=== PATIENT | female | born 1970 | race Caucasian/White ===

== ENCOUNTER 2019-08-25 18:15 | Inpatient (IN) | payer MEDICAID ==
[~2019-08-25] VITALS: Ht 160 cm; Wt 47.7 kg
[~2019-08-25 18:15] MED LIST: FENT1PAT7 TD; HYDR-4383 PO; LAMO100T PO; LORA1TAB PO; PANT-47 PO; SUCR1ORA2 PO; TEMA15CA PO
[2019-08-25] MEDS ORDERED: normal saline 1000ML IV soln IV ONE (18:25)
[2019-08-25] MEDS ORDERED: morphine 4 MG/ML inj SYRINge IV ONE (18:25)
[2019-08-25] MEDS ORDERED: vancomycin/NS 1 GM ADD-VANTAGE 250 ML IV ONE (18:25)
[2019-08-25] MEDS ORDERED: clindamycin 600mg/D5W 50ml 50 ML IV ONE (18:25)
[2019-08-25] MEDS ORDERED: iohexol 350MG/ML 100ml bottle IV ONE (18:37)
[2019-08-25] MEDS ORDERED: iohexol 300mg/ml 100ml inj. ONE (18:39)
[2019-08-25 19:28] LABS: BASOPHILS % (AUTO) 0.3 % (0-1); EOSINOPHILS # (AUTO) 0.2 X10'3 (0-0.9); EOSINOPHILS % (AUTO) 1.5 % (0-6); HEMATOCRIT 27.6 % (35.0-45.0); HEMOGLOBIN 8.9 g/dl (12.0-16.0); LYMPHOCYTES # (AUTO) 1.7 X10'3 (1.1-4.8); LYMPHOCYTES % (AUTO) 12.8 % (21-51); MEAN CORPUSCULAR HEMOGLOBIN 24.4 PG (27.0-31.0); MEAN CORPUSCULAR HGB CONC 32.1 g/dL (33.0-36.5); MEAN PLATELET VOLUME 6.7 FL (7.4-10.4); MONOCYTES # (AUTO) 1.1 X10'3 (0-0.9); MONOCYTES % (AUTO) 8.2 % (2-12); NEUTROPHILS # (AUTO) 10.4 X10'3 (1.8-7.7); NEUTROPHILS % (AUTO) 77.2 % (42-75); PLATELET COUNT 389 X10'3 (140-440); RED BLOOD COUNT 3.64 X10'6 (4.20-5.60); RED CELL DISTRIBUTION WIDTH 18.4 % (11.5-14.5); WHITE BLOOD COUNT 13.5 X10'3 (4.5-11.0)
[2019-08-25 19:46] LABS: ALANINE AMINOTRANSFERASE 103 U/L (12-78); ALBUMIN 2.7 G/DL (3.4-5.0); ALBUMIN/GLOBULIN RATIO 0.7 (1.1-1.5); ALKALINE PHOSPHATASE 122 IU/L (46-116); ANION GAP 10 (8-16); ASPARTATE AMINO TRANSFERASE 77 U/L (10-37); BILIRUBIN,TOTAL 0.3 MG/DL (0.1-1.0); BLOOD UREA NITROGEN 7 MG/DL (7-18); CALCIUM 7.8 MG/DL (8.5-10.1); CHLORIDE 104 MMOL/L (99-107); POTASSIUM 3.2 MMOL/L (3.5-5.1); SODIUM 139 MMOL/L (135-145); TOTAL CARBON DIOXIDE 25.4 MMOL/L (24-32); TOTAL PROTEIN 6.6 G/DL (6.4-8.2); eGFR > 90 ML/MIN
[2019-08-25 19:48] LABS: GLUCOSE 93 MG/DL (70-104)
[2019-08-25] MEDS ORDERED: acetaminophen 325mg tablet PO PRN ×2 (21:05)
[2019-08-25] MEDS ORDERED: ondansetron/PF 4mg/2ml inj IV PRN (21:05)
[2019-08-25] MEDS ORDERED: potassium Cl 20 mEq SR tablet PO PRN (21:05)
[2019-08-25] MEDS ORDERED: magnesium Cl slow-release 64mg tablet PO PRN (21:05)
[2019-08-25] MEDS ORDERED: normal saline 1000ml 1,000 ML IV ONE (21:05)
[2019-08-25] MEDS ORDERED: magnesium 4gm in 100ml NS 100 ML IV PRN (21:05)
[2019-08-25] MEDS ORDERED: morphine 2 MG/ML inj. syringe IV PRN (21:05)
[2019-08-25] MEDS ORDERED: potassium CL 10mEq/100ml bag 100 ML IV PRN ×2 (21:05)
[2019-08-25] MEDS ORDERED: magnesium 2GM in 50ml NS 50 ML IV PRN (21:05)
[2019-08-25] MEDS ORDERED: magnesium hydroxide 30ml (MOM) UD suspension PO PRN (21:05)
[2019-08-25] MEDS ORDERED: mag hydrox/Alum hydrox/simeth 30ml oral suspension PO PRN (21:05)
[2019-08-25 21:09] LABS: CLARITY,URINE SLIGHTLY CLOUDY (Clear); COLOR,URINE YELLOW (Yellow); GLUCOSE, URINE NEGATIVE (Neg); KETONES,URINE NEGATIVE (Neg); LEUKOCYTE ESTERASE ,URINE LARGE (Neg); NITRITES, URINE NEGATIVE (Neg); OCCULT BLOOD,URINE TRACE-INTACT (Neg); PROTEIN,URINE NEGATIVE (Neg); UROBILINOGEN,URINE 0.2 E.U/dL (0.2-1.0)
[2019-08-25 21:10] LABS: URINE HCG NEGATIVE (NEG)
[2019-08-25 21:23] LABS: UA COLLECTION TYPE CLN CATCH MIDSTREAM
[2019-08-25 21:26] LABS: WBC,URINE 20-30 /HPF (0-4)
[2019-08-25 21:31] LABS: BACTERIA,URINE FEW /HPF (Neg); MUCUS STRANDS FEW /LPF (Neg); RBC,URINE 0-2 /HPF (0-2); SQUAMOUS EPITHELIAL CELL,UR MANY /LPF (FEW); TRANSITIONAL EPI CELLS,URINE FEW /HPF; WBC CLUMPS,URINE FEW /HPF (NEGATIVE)
[2019-08-25 21:32] LABS: TRICHOMONAS,URINE FEW /HPF (NEGATIVE)
--- NOTE | 2019-08-25 22:15 | NUR ---
Received report from Rima GARBER in the ER. Pt arrived on the unit via gurney. VSS, on R/A, no fluids running. Pt was able to walk from the gurney to the bed. No signs of distress, will continue to monitor.
[2019-08-25 22:30] VITALS: BP 142/96
[2019-08-25] MEDS: morphine 2 MG/ML inj. syringe IV PRN (23:22)
[2019-08-26 01:11] LABS: CLARITY,URINE CLEAR (Clear); COLOR,URINE YELLOW (Yellow); GLUCOSE, URINE NEGATIVE (Neg); KETONES,URINE TRACE mg/dl (Neg); LEUKOCYTE ESTERASE ,URINE SMALL (Neg); NITRITES, URINE NEGATIVE (Neg); OCCULT BLOOD,URINE NEGATIVE (Neg); PROTEIN,URINE NEGATIVE (Neg); UROBILINOGEN,URINE 0.2 E.U/dL (0.2-1.0)
[2019-08-26 01:17] LABS: UA COLLECTION TYPE OTHER
[2019-08-26 01:19] LABS: BACTERIA,URINE FEW /HPF (Neg); RBC,URINE NONE SEEN /HPF (0-2); SQUAMOUS EPITHELIAL CELL,UR MODERATE /LPF (FEW)
[2019-08-26] MEDS: HYDROcodone/acetaminophen 5mg/325mg tablet PO PRN ×2 (02:11→16:12)
[2019-08-26] MEDS: clindamycin 300mg/D5W 50mL 50 ML IV SCH ×4 (02:13→20:28)
[2019-08-26] MEDS: morphine 2 MG/ML inj. syringe IV PRN ×3 (05:35→20:34)
--- NOTE | 2019-08-26 06:37 | NUR ---
Problems reprioritized. Patient report given, questions answered & plan of care reviewed with Melanie GARBER.
--- NOTE | 2019-08-26 06:46 | NUR ---
Patient in room [facility]. I have received report from Bina GARBER and had the opportunity to ask questions and assume patient care.
[2019-08-26 08:00] VITALS: BP 131/77
[2019-08-26] MEDS: K and/or MAG REPLACEMENT MC SCH ×2 (08:00→20:00)
[2019-08-26] MEDS ORDERED: NO HOME MEDS (08:05)
[2019-08-26] MEDS: lactobacillus rhamnosus 10,000 MMU CELLS/CAPSULE PO SCH ×2 (08:33→20:28)
[2019-08-26] MEDS ORDERED: normal saline 500ml IV soln 500 ML IV SCH (08:40)
[2019-08-26 09:31] LABS: BASOPHILS % (AUTO) 0.1 % (0-1); EOSINOPHILS % (AUTO) 0.1 % (0-6); HEMATOCRIT 28.1 % (35.0-45.0); HEMOGLOBIN 9.2 g/dl (12.0-16.0); LYMPHOCYTES # (AUTO) 1.1 X10'3 (1.1-4.8); LYMPHOCYTES % (AUTO) 7.2 % (21-51); MEAN CORPUSCULAR HEMOGLOBIN 24.8 PG (27.0-31.0); MEAN CORPUSCULAR HGB CONC 32.9 g/dL (33.0-36.5); MEAN CORPUSCULAR VOLUME 75.6 FL (78-98); MEAN PLATELET VOLUME 6.6 FL (7.4-10.4); MONOCYTES # (AUTO) 0.7 X10'3 (0-0.9); MONOCYTES % (AUTO) 4.5 % (2-12); NEUTROPHILS # (AUTO) 13.4 X10'3 (1.8-7.7); NEUTROPHILS % (AUTO) 88.1 % (42-75); PLATELET COUNT 406 X10'3 (140-440); RED BLOOD COUNT 3.72 X10'6 (4.20-5.60); RED CELL DISTRIBUTION WIDTH 18.7 % (11.5-14.5); WHITE BLOOD COUNT 15.2 X10'3 (4.5-11.0)
[2019-08-26 09:43] LABS: ALBUMIN 2.4 G/DL (3.4-5.0); ANION GAP 11 (8-16); BLOOD UREA NITROGEN 5 MG/DL (7-18); CHLORIDE 105 MMOL/L (99-107); MAGNESIUM 1.8 MG/DL (1.5-2.4); POTASSIUM 3.3 MMOL/L (3.5-5.1); SODIUM 139 MMOL/L (135-145); TOTAL CARBON DIOXIDE 23.2 MMOL/L (24-32); eGFR > 90 ML/MIN
[2019-08-26 09:45] LABS: GLUCOSE 102 MG/DL (70-104)
[2019-08-26] MEDS: VANCOMYCIN 750MG IV in NS 250 ML IV SCH ×2 (09:47→22:04)
[2019-08-26 10:38] LABS: ANISOCYTOSIS 2+; HYPOCHROMASIA 1+; MICROCYTOSIS 1+; PLATELET ESTIMATE NORMAL
[2019-08-26 11:00] VITALS: BP 128/81
[2019-08-26] MEDS: potassium Cl 20 mEq SR tablet PO PRN ×3 (11:25→20:27)
--- NOTE | 2019-08-26 16:30 | NUR ---
Dr Mohamud was not sure who was going to see the pt from Ortho. Dr Mohamud then called Dr Lindquist for consult. After Dr Rowland came to see the pt, Dr Lindquist will schedule pt for surgery on 08/27/19 AT about 0730. Pt will be NPO at Midnight.
--- NOTE | 2019-08-26 18:10 | NUR ---
Problems reprioritized. Patient report given, questions answered & plan of care reviewed with Bina GARBER.
--- NOTE | 2019-08-26 18:30 | NUR ---
Problems reprioritized. Patient report given, questions answered & plan of care reviewed with Roz key.
--- NOTE | 2019-08-26 19:28 | NUR ---
Patient in room [facility]. I have received report from Melanie GARBER and had the opportunity to ask questions and assume patient care.
[2019-08-26 20:00] VITALS: BP 132/82
[2019-08-27] VITALS (18 sets, daily range): BP systolic 110–145; BP diastolic 60–89
[2019-08-27] MEDS: clindamycin 300mg/D5W 50mL 50 ML IV SCH ×4 (02:23→19:35)
--- NOTE | 2019-08-27 03:59 | NUR ---
Pt has 0730 vanco level ordered, however pt scheduled to be in OR at 0730. Per pharmacy vanco level will need to be drawn before 2000 dose of Vanco.
[2019-08-27 04:57] LABS: BASOPHILS % (AUTO) 0.1 % (0-1); EOSINOPHILS % (AUTO) 0.2 % (0-6); HEMATOCRIT 28.4 % (35.0-45.0); HEMOGLOBIN 9.4 g/dl (12.0-16.0); LYMPHOCYTES # (AUTO) 1.5 X10'3 (1.1-4.8); LYMPHOCYTES % (AUTO) 11.9 % (21-51); MEAN CORPUSCULAR HEMOGLOBIN 24.7 PG (27.0-31.0); MEAN PLATELET VOLUME 6.7 FL (7.4-10.4); MONOCYTES # (AUTO) 0.7 X10'3 (0-0.9); MONOCYTES % (AUTO) 5.6 % (2-12); NEUTROPHILS # (AUTO) 10.2 X10'3 (1.8-7.7); NEUTROPHILS % (AUTO) 82.2 % (42-75); PLATELET COUNT 457 X10'3 (140-440); RED BLOOD COUNT 3.79 X10'6 (4.20-5.60); RED CELL DISTRIBUTION WIDTH 18.6 % (11.5-14.5); WHITE BLOOD COUNT 12.4 X10'3 (4.5-11.0)
[2019-08-27 04:59] LABS: ALANINE AMINOTRANSFERASE 65 U/L (12-78); ALBUMIN 2.4 G/DL (3.4-5.0); ALBUMIN/GLOBULIN RATIO 0.6 (1.1-1.5); ALKALINE PHOSPHATASE 119 IU/L (46-116); ANION GAP 8 (8-16); ASPARTATE AMINO TRANSFERASE 41 U/L (10-37); BILIRUBIN,TOTAL 0.4 MG/DL (0.1-1.0); BLOOD UREA NITROGEN 8 MG/DL (7-18); BUN/CREATININE RATIO 16.7 (6.6-38.0); CALCIUM 8.2 MG/DL (8.5-10.1); CHLORIDE 105 MMOL/L (99-107); CREATININE 0.48 MG/DL (0.40-0.90); PARTIAL THROMBOPLASTIN TIME 27 SECONDS (22-32); POTASSIUM 3.6 MMOL/L (3.5-5.1); SODIUM 137 MMOL/L (135-145); TOTAL CARBON DIOXIDE 24.3 MMOL/L (24-32); TOTAL PROTEIN 6.4 G/DL (6.4-8.2); eGFR > 90 ML/MIN
[2019-08-27 05:08] LABS: GLUCOSE 104 MG/DL (70-104)
[2019-08-27 06:22] LABS: PLATELET ESTIMATE INCREASED
[2019-08-27 06:23] LABS: ANISOCYTOSIS 2+; MICROCYTOSIS 1+
[2019-08-27 06:24] LABS: HYPOCHROMASIA 1+; POIKILOCYTOSIS FEW
--- NOTE | 2019-08-27 06:31 | NUR ---
Problems reprioritized. Patient report given, questions answered & plan of care reviewed with Sarah GARBER. Pt sleeping on his back, no signs of distress.
[2019-08-27] MEDS ORDERED: BUPIVAcaine/PF 2.5 mg/ml (0.25%) 30ml vial ONE (06:53)
[2019-08-27] MEDS: lactobacillus rhamnosus 10,000 MMU CELLS/CAPSULE PO SCH ×2 (06:58→19:36)
[2019-08-27] MEDS ORDERED: ringers solution, lacted 1,000 ML IV SCH (07:06)
[2019-08-27] MEDS ORDERED: morphine 4 MG/ML inj SYRINge IV PRN ×2 (07:10)
[2019-08-27] MEDS ORDERED: meperidine/PF 25mg/ml syringe IV PRN ×2 (07:10)
[2019-08-27] MEDS ORDERED: ondansetron/PF 4mg/2ml inj IV PRN (07:10)
[2019-08-27] MEDS ORDERED: proCHLORperazine 10 MG/2 ml inj IV PRN (07:10)
[2019-08-27] MEDS ORDERED: sevoflurane 250ml liquid IH ONE (07:11)
[2019-08-27] MEDS ORDERED: propofol inj 20 ML IV ONE (07:14)
[2019-08-27] MEDS ORDERED: fentaNYL/PF 50MCG/1 ML 2ML syringe ONE ×2 (07:14→07:26)
[2019-08-27] MEDS ORDERED: VANCOMYCIN LEVEL IV ONE (07:30)
--- NOTE | 2019-08-27 07:55 | NUR ---
Received from OR via BED, accompanied by Anesthesiologist DR SLADE and report given by Anesthesiolgist. PATIENT A&OX4, DENIES PAIN, V/S WNL, NEUROVASCULAR CHECKS INTACT, 20G PIV RUE, SCD ON, DRESSING TO LEFT WRIST WV AT 125 CONTINOUS SUCTION WITH NO LEAKS DETECTED CDI ELEVATED .
[2019-08-27] MEDS: VANCOMYCIN 750MG IV in NS 250 ML IV SCH ×2 (08:00→20:27)
[2019-08-27] MEDS: K and/or MAG REPLACEMENT MC SCH ×2 (08:00→20:00)
[2019-08-27] MEDS: meperidine/PF 25mg/ml syringe IV PRN ×4 (08:05→08:36)
--- NOTE | 2019-08-27 08:35 | NUR ---
PATIENT A&OX4, DENIES PAIN, V/S WNL, NEUROVASCULAR CHECKS INTACT, 20G PIV LUE, SCD ON, DRESSING TO LEFT WRIST WV AT 125 CONTINOUS SUCTION WITH NO LEAKS DETECTED CDI ELEVATED . PATIENT TAKEN TO 345A WITH ALL BELONGINGS AND HOOKED UP TO MONITORS IN ROOM AND REPORT GIVEN TO RN WHO HAS TAKEN OVER PATIENT CARE.
[2019-08-27] MEDS: HYDROcodone/acetaminophen 5mg/325mg tablet PO PRN ×2 (09:19→23:08)
[2019-08-27] MEDS: morphine 2 MG/ML inj. syringe IV PRN (09:23)
--- NOTE | 2019-08-27 12:40 | NUR ---
WOUND VAC EDUCATION PROVIDED BY WOUND CARE 1. Patient instructed to call the Wound Center or their Home Health Agency immediately if: * They notice a change in the color or amount of the fluid in the canister. * Their wound looks more red than usual or has a foul smell. * The skin around their wound looks reddened or irritated. * The dressing feels loose or appears to be loose. * They experience any increase or changes in their pain. * The alarm will not turn off. 2. Patient instructed that they should not be disconnected from suction for more than 2 hours at a time. * If they are not able to get the suction back on, they need to remove the dressing and take all of the foam out of the wound. * Then moisten sterile gauze with normal saline and place on/in the wound. * Change the dressing once a day until arrangements have been made to replace the wound vac dressing. 3. Patient instructed to turn the wound vac machine OFF and call 911 or go to the ED immediately if their canister fills rapidly with blood. 4. If any of these occur while in the hospital tell a nurse immediately. Addendum: 08/27/19 at 1241 by Braeden Greco RN Amended: Links added.
--- NOTE | 2019-08-27 18:21 | NUR ---
Problems reprioritized. Patient report given, questions answered & plan of care reviewed with Aditi RN.
--- NOTE | 2019-08-27 19:30 | NUR ---
pt has bulky drsg to left hand; fingers exposed; slight edema to fingers; denies increase in numbness or tingling to fingers post op; encouraged to keep it elevated Addendum: 08/28/19 at 0312 by Blank Live RN Amended: Links added.
[2019-08-28] VITALS: BP 115/64
[2019-08-28] MEDS: clindamycin 300mg/D5W 50mL 50 ML IV SCH ×3 (02:19→13:41)
[2019-08-28 04:00] VITALS: BP 133/84
[2019-08-28 05:19] LABS: BASOPHILS # (AUTO) 0.1 X10'3 (0-0.2); BASOPHILS % (AUTO) 0.7 % (0-1); EOSINOPHILS # (AUTO) 0.1 X10'3 (0-0.9); EOSINOPHILS % (AUTO) 0.8 % (0-6); HEMATOCRIT 28.9 % (35.0-45.0); HEMOGLOBIN 9.8 g/dl (12.0-16.0); LYMPHOCYTES # (AUTO) 1.9 X10'3 (1.1-4.8); LYMPHOCYTES % (AUTO) 23.7 % (21-51); MEAN CORPUSCULAR HEMOGLOBIN 25.3 PG (27.0-31.0); MEAN CORPUSCULAR HGB CONC 33.8 g/dL (33.0-36.5); MEAN PLATELET VOLUME 6.7 FL (7.4-10.4); MONOCYTES # (AUTO) 0.6 X10'3 (0-0.9); MONOCYTES % (AUTO) 7.2 % (2-12); NEUTROPHILS # (AUTO) 5.3 X10'3 (1.8-7.7); NEUTROPHILS % (AUTO) 67.6 % (42-75); PLATELET COUNT 502 X10'3 (140-440); RED BLOOD COUNT 3.85 X10'6 (4.20-5.60); RED CELL DISTRIBUTION WIDTH 18.7 % (11.5-14.5); WHITE BLOOD COUNT 7.9 X10'3 (4.5-11.0)
[2019-08-28 05:28] LABS: ALBUMIN 2.4 G/DL (3.4-5.0); ANION GAP 6 (8-16); BLOOD UREA NITROGEN 9 MG/DL (7-18); BUN/CREATININE RATIO 19.1 (6.6-38.0); CHLORIDE 108 MMOL/L (99-107); CREATININE 0.47 MG/DL (0.40-0.90); MAGNESIUM 2.1 MG/DL (1.5-2.4); POTASSIUM 3.2 MMOL/L (3.5-5.1); SODIUM 140 MMOL/L (135-145); TOTAL CARBON DIOXIDE 25.6 MMOL/L (24-32); eGFR > 90 ML/MIN
[2019-08-28 05:32] LABS: GLUCOSE 97 MG/DL (70-104)
[2019-08-28 06:21] LABS: ANISOCYTOSIS 2+; MICROCYTOSIS 1+; PLATELET ESTIMATE INCREASED
[2019-08-28 06:22] LABS: HYPOCHROMASIA 2+
[2019-08-28] MEDS: lactobacillus rhamnosus 10,000 MMU CELLS/CAPSULE PO SCH (07:19)
[2019-08-28] MEDS: HYDROcodone/acetaminophen 5mg/325mg tablet PO PRN ×2 (07:20→13:41)
[2019-08-28 07:25] VITALS: BP 128/71
[2019-08-28] MEDS: potassium Cl 20 mEq SR tablet PO PRN ×2 (07:25→13:41)
[2019-08-28] MEDS: K and/or MAG REPLACEMENT MC SCH (07:26)
--- NOTE | 2019-08-28 08:28 | NUR ---
SPOKE WITH PHARMACIST ABOUT 0800 VANCO DOSE THAT IS DUE. THERE HAS NOT BEEN A LEVEL DRAWN YET. WAS ADVISED TO GIVE THE VANCO AND A LEVEL WILL BE DRAWN THIS AFTERNOON.
[2019-08-28] MEDS: VANCOMYCIN 750MG IV in NS 250 ML IV SCH (08:33)
[2019-08-28 11:51] VITALS: BP 120/78
--- NOTE | 2019-08-28 15:55 | NUR ---
PAGER ID: [phone] MESSAGE: Vinicius Lambert [id number] : patient requesting to be discharged. states that she has an address to discharge to and can make it back to appointments for wound care.... [id number]
--- NOTE | 2019-08-28 17:22 | NUR ---
after numerous attempts to get patient to stay through IV and wound vac therapy she insists on leaving against medical advise. I spoke with Dr. Lindquist who does not agree with patient leaving, however we cannot keep her against her will. Since the patient cannot leave with the wound vac, he advised to place a large bandage over the wound and encourage follow up with wound clinic.
--- NOTE | 2019-08-28 18:02 | NUR ---
Patient left AMA. Wound vac and IV removed from patient. Large bandage placed over the place of wound vac per Dr. Lindquist recommendations. All belongings taken from wound. Encouraged patient to call tomorrow and try to get an appointment with out patient wound care. Instructed patient to keep wound clean and dry.
[2019-08-29] MEDS ORDERED: VANCOMYCIN LEVEL IV ONE (07:30)
== END 2019-08-28 18:28 | disposition left against medical advice (07) | DRG 710 ==
LOC: ER 18:16 → ED HOLD 21:02 → SUR 3N 22:30
PROVIDERS: ADMIT Hospitalist; ATTEND Family Medicine
PROC: BP2P1ZZ Computerized Tomography (CT Scan) of Left Hand using Low Osmolar Contrast (ICD-10-PCS; 2019-08-25)
PROC: 0JBK0ZZ Excision of Left Hand Subcutaneous Tissue and Fascia, Open Approach (ICD-10-PCS; principal; 2019-08-27 07:11)
DX: A41.9 Sepsis, unspecified organism (principal); K72.90 Hepatic failure, unspecified without coma; E87.6 Hypokalemia; F11.10 Opioid abuse, uncomplicated; L02.512 Cutaneous abscess of left hand; L03.114 Cellulitis of left upper limb; Z53.29 Procedure and treatment not carried out because of patient's decision for other reasons; F17.210 Nicotine dependence, cigarettes, uncomplicated; F15.10 Other stimulant abuse, uncomplicated; Z59.0 Homelessness; Z80.0 Family history of malignant neoplasm of digestive organs; Z80.1 Family history of malignant neoplasm of trachea, bronchus and lung; Z88.1 Allergy status to other antibiotic agents; Z90.710 Acquired absence of both cervix and uterus; Z88.5 Allergy status to narcotic agent; Z88.8 Allergy status to other drugs, medicaments and biological substances; Z90.49 Acquired absence of other specified parts of digestive tract
CPT/HCPCS: 36415; 71045; 73201; 80048; 80053; 81001; 81025; 82948; 83605; 83735; 84145; 85025; 85610; 85730; 87040; 87070; 87075; 87077; 87081; 87088; 87102; 87186; 93005; 96365; 96367; 96375; 99285; A4618; A6449; A6550; A7000; G0378; J2175; J2270; J2704; J3010; J3370; J3490; J7050; J7120; Q9967